=== PATIENT | female | born 1995 | race Caucasian/White ===

== ENCOUNTER 2019-01-14 13:45 | Observation (INO) ==
[2019-01-14 14:06] LABS: Basophils % 0.3 % (0.1-2.0); Eosinophils # 0.2 K/mm3 (0.0-0.4); Eosinophils % 1.5 % (0.1-12.0); Hematocrit 46.2 % (37.0-47.0); Hemoglobin 15.1 g/dL (12.2-16.2); Lymphocytes # 0.4 K/mm3 (0.7-4.5); Lymphocytes % 2.8 % (10-50); Mean Corpuscular HGB Conc 32.8 g/dL (31.8-35.4); Mean Corpuscular Hemoglobin 29.3 pg (27.0-31.2); Mean Corpuscular Volume 89.3 fl (81-99); Mean Platelet Volume 8.6 fl (7.4-10.4); Monocytes # 0.5 K/mm3 (0.1-1.0); Monocytes % 2.9 % (1.7-9.3); Neutrophils # 14.5 K/mm3 (1.8-7.8); Neutrophils % 92.5 % (37.0-80.0); Platelet Count 296 K/mm3 (142-424); Red Blood Count 5.17 M/mm3 (4.20-5.40); White Blood Count 15.7 K/mm3 (4.8-10.8)
--- NOTE | 2019-01-14 14:10 | Emergency Department Note ---
ED Disposition Clinical Impression: Gastroenteritis Disposition: Admitted as Observation Condition on Discharge: Good Instructions: DI for Acute Abdomen Referrals: Zak Wright MD [Primary Care Provider] - Time of Disposition: 17:30 - Critical Care Critical Care Time: No Attestation: On 01/14/19, the high probability of a clinically significant, sudden or life threatening deterioration of the following system(s) required my full and direct attention, intervention and personal management. The time I documented below is in addition to time spent performing reported procedures but includes the following listed in this critical care notation. Medical Decision Making - Medical Records Medical records reviewed: Yes: I reviewed the patient's medical records. - Ryan Inquiry Pt receiving controlled substance: Yes Ryan was queried for this patient: No Reason not queried -: Emergent pt cond-no time Risks and benefits of using a controlled substance: were discussed with pt by me Vital Signs: 01/14/19 13:51 01/14/19 14:16 01/14/19 14:30 Temperature 97.8 F Temperature Source Oral Pulse Rate [Left Radial] 129 H 119 H 124 H Respiratory Rate 18 15 Blood Pressure [Right Arm] 147/96 H 125/70 132/76 Blood Pressure Mean [Right Arm] 113 88 94 Blood Pressure Source [Right Arm] Automatic Cuff Automatic Cuff Blood Pressure Position [Right Arm] Sitting Sitting 02 Sat by Pulse Oximetry 98 96 100 Oxygen Delivery Method Room Air Room Air 01/14/19 15:00 01/14/19 15:30 01/14/19 15:46 Temperature Temperature Source Pulse Rate [Left Radial] 123 H 129 H 119 H Respiratory Rate 19 Blood Pressure [Right Arm] 147/78 H 132/72 132/72 Blood Pressure Mean [Right Arm] 101 92 92 Blood Pressure Source [Right Arm] Automatic Cuff Automatic Cuff Blood Pressure Position [Right Arm] Sitting Sitting 02 Sat by Pulse Oximetry 97 100 98 Oxygen Delivery Method Room Air 01/14/19 16:20 01/14/19 17:00 Temperature Temperature Source Pulse Rate [Left Radial] 115 H 125 H Respiratory Rate 17 Blood Pressure [Right Arm] 158/88 H 138/77 Blood Pressure Mean [Right Arm] 111 97 Blood Pressure Source [Right Arm] Automatic Cuff Automatic Cuff Blood Pressure Position [Right Arm] Sitting Sitting 02 Sat by Pulse Oximetry 96 99 Oxygen Delivery Method Room Air - Lab Data Lab results reviewed: Yes: I reviewed the patient's lab results. Lab Results 01/14/19 14:00: WBC 15.7 H, RBC 5.17, Hgb 15.1, Hct 46.2, MCV 89.3, MCH 29.3, MCHC 32.8, RDW 13.0, Plt Count 296, MPV 8.6, Neut % (Auto) 92.5 H, Lymph % (Auto) 2.8 L, Wake % (Auto) 2.9, Eos % (Auto) 1.5, Baso % (Auto) 0.3, Neut # (Auto) 14.5 H, Lymph # (Auto) 0.4 L, Wake # (Auto) 0.5, Eos # (Auto) 0.2, Baso # (Auto) 0.0, Total Counted 100, Neutrophils % (Manual) 86 H, Band Neutrophils % 8.0, Lymphocytes % (Manual) 3 L, Monocytes % (Manual) 3, Platelet Estimate Normal, RBC Morphology Normal 01/14/19 14:00: Sodium 137, Potassium 4.6, Chloride 100, Carbon Dioxide 26, Anion Gap 15.6 H, BUN 15, Creatinine 0.74, Estimated Creat Clear 162, Estimated GFR 96, Est GFR ( Amer) 117, Glucose 293 H, Calcium 9.2, Total Bilirubin 1.1 H, AST 13 L, ALT 24, Alkaline Phosphatase 153 H, Total Protein 8.2, Albumin 4.2, Globulin 4.0 H, Albumin/Globulin Ratio 1.1 01/14/19 14:00: Sodium Cancelled, Potassium Cancelled, Chloride Cancelled, Carbon Dioxide Cancelled, Anion Gap Cancelled, BUN Cancelled, Creatinine Cancelled, Estimated Creat Clear Cancelled, Estimated GFR Cancelled, Est GFR ( Amer) Cancelled, Glucose Cancelled, Calcium Cancelled, Total Bilirubin Cancelled, AST Cancelled, ALT Cancelled, Alkaline Phosphatase Cancelled, Total Protein Cancelled, Albumin Cancelled, Globulin Cancelled, Albumin/Globulin Ratio Cancelled, Lipase 64 L, Acetone Level None detected 01/14/19 14:00: Lactate 1.6 01/14/19 14:00: Serum HCG, Qual Negative 01/14/19 15:11: POC Glucose 203 H Result diagrams: 01/14/19 14:00 01/14/19 14:00 Orders (Tests/Meds): ED MEDICATIONS Generic Name Dose Route Start Last Admin Trade Name Artie PRN Reason Stop Dose Admin Ceftriaxone Sodium 1 gm/ 50 mls @ 100 mls/hr 01/14/19 17:30 Sodium Chloride IV 01/28/19 17:29 Q24H CHRIS Protocol Metronidazole 250 mg in 50 mls @ 100 mls/hr 01/14/19 17:30 Flagyl 250mg/50ml Ivpb IV 01/28/19 17:29 Q8H CHRIS Protocol Discontinued Medications Generic Name Dose Route Start Last Admin Trade Name Artie PRN Reason Stop Dose Admin Sodium Chloride 1,000 mls @ 999 mls/hr 01/14/19 14:00 01/14/19 14:01 Sod Chlor 0.9% 1000ml Bag IV 01/14/19 15:00 999 mls/hr .Q1H1M CHRIS Administration Sodium Chloride 500 mls @ 999 mls/hr 01/14/19 14:15 01/14/19 14:10 Sod Chlor 0.9% 1000ml Bag IV 01/14/19 14:45 Not Given .Q31M CHRIS Ioversol 75 ml 01/14/19 17:08 01/14/19 17:09 Rad-Optiray 350 100ml Vial IV 01/14/19 17:09 75 ml ONCE ONE Administration Protocol Ketorolac Tromethamine 30 mg 01/14/19 14:00 01/14/19 14:01 Toradol 30mg/Ml Vial IV 01/14/19 14:01 30 mg ONCE ONE Administration Ketorolac Tromethamine 30 mg 01/14/19 14:07 01/14/19 14:13 Toradol 30mg/Ml Vial IV 01/14/19 14:08 Not Given ONCE ONE Morphine Sulfate 2 mg 01/14/19 15:49 01/14/19 15:54 Morphine 2mg/Ml Syringe IV 01/14/19 15:50 2 mg ONCE ONE Administration Ondansetron HCl 4 mg 01/14/19 13:56 01/14/19 14:01 Zofran 4mg/2ml Vial IV 01/14/19 13:57 4 mg ONCE ONE Administration Ondansetron HCl 4 mg 01/14/19 14:07 01/14/19 14:10 Zofran 4mg/2ml Vial IV 01/14/19 14:08 Not Given ONCE ONE Ondansetron HCl 4 mg 01/14/19 15:28 01/14/19 15:29 Zofran 4mg/2ml Vial IV 01/14/19 15:29 4 mg ONCE ONE Administration Promethazine HCl 12.5 mg 01/14/19 15:48 01/14/19 15:54 Phenergan 25mg/Ml 1ml Vial IV 01/14/19 15:49 12.5 mg ONCE ONE Administration Promethazine HCl 12.5 mg 01/14/19 17:08 01/14/19 17:15 Phenergan 25mg/Ml 1ml Vial IV 01/14/19 17:09 12.5 mg ONCE ONE Administration Sodium Chloride 25 ml 01/14/19 15:48 01/14/19 15:54 Sod Chlor 0.9% 25ml Bag IV 01/14/19 15:49 25 ml ONCE ONE Administration Sodium Chloride 10 ml 01/14/19 17:08 01/14/19 17:09 Rad-Saline Flush 10ml Syringe IV 01/14/19 17:09 10 ml ONCE ONE Administration Sodium Chloride 25 ml 01/14/19 17:08 01/14/19 17:15 Sod Chlor 0.9% 25ml Bag IV 01/14/19 17:09 25 ml ONCE ONE Administration ORDERS Category Date Time Status Drug Screen,Urine Stat Lab 01/14/19 14:04 Ordered UA [Urinalysis and Microscopic] Stat Lab 01/14/19 13:55 Ordered Urine , HCG Qual. Stat Lab 01/14/19 13:56 Ordered Blood Culture Stat Micro 01/14/19 14:00 Received Blood Culture Stat Micro 01/14/19 17:28 Ordered - CT Data CT Scan: Abdomen, Pelvis Time Received: 17:[address] Reviewed: Yes: I have viewed the radiologist's interpretation Medical Decision Narrative: admit d/w Dr Buckner General Adult HPI - General Chief complaint: Abdominal Pain Stated complaint: vomiting Time Seen by Provider: 01/14/19 14:07 Mode of Arrival: Ambulatory Source of Information: Patient Limitations: No Limitations Description of Symptoms (Recalled from ER Triage Doc. by RN): Pt states she started last night with n/v/d and it has continued into today with lower abdomen and back pain. She is vomiting yellow bile looking stuff up - History of Present Illness HPI narrative: mild to mod off and on NVD today, w/ lower abdominal cramps, no fever, no injury, rad to back, no rash, hx dka, states she is unable to eat - Related Data Home Medications Medication Instructions Recorded Confirmed Insulin Detemir [Levemir 24 unit SQ HS 01/14/19 01/14/19 100units/mL 3mL flexpen] Insulin Lispro [HumaLOG 100 100 units SQ DIRECTED 01/14/19 01/14/19 units/mL 3mL vial (SSI)] Allergies Allergy/AdvReac Type Severity Reaction Status Date / Time No Known Allergies Allergy Unverified 09/28/17 14:56 [facility] History - Hepatitis A Screen Drug use history?: No High risk sexual behaviors?: No History of sexually transmitted infection?: No Currently employed?: No Childcare worker?: No Do you have indoor plumbing?: Yes Do you have electricity?: Yes Attestation statement:: This patient has been screened for Hepatitis A risk factors. Medical History: Reports:: Diabetes Mellitus Type 1 Denies:: Diabetes Mellitus Type 2 - Social History Alcohol Intake: current Alcohol Intake Frequency:: holidays/special occasions only Occupational Status: other - Psychiatric History Expresses thoughts of harming self/others: None Suicide Plan Description: No Plan ROS Obtained: Yes Systems reviewed as appropriate & no additional complaints - Constitutional Constitutional: Reports fatigue, Denies fever(s) - Eyes Eyes: Denies change in vision - ENT Ears, Nose, Mouth, and Throat: Denies nasal discharge, Denies nose pain - Cardiovascular Cardiovascular: Denies acrocyanosis, Denies chest pain - Respiratory Respiratory: No dyspnea - Gastrointestinal Gastrointestingal: Reports: abdominal pain, vomiting - Musculoskeletal Musculoskeletal: Denies neck pain - Integumentary/Breasts Skin/Breast: Denies rash - Neurologic Neurologic: Denies dizziness Physical Exam - General General appearance: alert, in no apparent distress - Head Head exam: atraumatic - Eye Eye exam: Present: normal appearance, PERRL, EOMI - ENT ENT exam: Present: normal exam, normal oropharynx, mucous membranes moist - Neck Neck exam: Present: normal inspection - Chest Chest inspection: Present: normal inspection - Respiratory Respiratory exam: Present: normal lung sounds bilaterally - Cardiovascular Cardiovascular exam: Present: regular rate, normal rhythm - Abdominal Exam Abdominal exam: Present: soft, tenderness. Absent: rebound - Extremities Exam Extremities exam: Present: normal inspection, full ROM - Back Exam Back exam: Present: normal inspection - Neurological Exam Neurological exam: Present: alert, oriented X3 - Psychiatric Psychiatric exam: Present: normal affect, normal mood - Skin Skin exam: Present: warm, dry
[2019-01-14 14:15] LABS: Acetone, Serum (Rapid) None Detected (None Detect)
[2019-01-14 14:19] LABS: Albumin Level 4.2 gm/dL (3.4-5.0); Albumin/Globulin Ratio 1.1 (1.1-1.8); Anion Gap 15.6 mEq/L (5-15); Bilirubin,Total 1.1 mg/dL (0.2-1.0); Calcium 9.2 mg/dL (8.5-10.1); Potassium 4.6 mmoL/L (3.5-5.1); Total Protein,Serum 8.2 gm/dL (6.4-8.2)
[2019-01-14 14:20] LABS: Lipase 64 u/L (73-393)
[2019-01-14 14:25] LABS: Lymphocytes % 3 % (10-50); Monocytes % 3 % (2-9); Neutrophils % 86 % (42-76); RBC Morphology Normal; Total Cells Counted 100
[2019-01-14 19:35] LABS: Microscopic, Urine URINE MICROSCOPIC (MICROSCOPIC)
[2019-01-14 19:44] LABS: Amphetamine/Metha Screen,Urine Negative ng/mL (<1000); Barbiturates Screen,Urine Negative ng/mL (<200); Benzodiazepines Screen,Urine Negative ng/mL (<200); Cannabinoid Screen,Urine Negative ng/mL (<50); Cocaine Screen,Urine Negative ng/mL (<300); Methadone Screen,Urine Negative ng/mL (<300); Opiate Screen,Urine Positive ng/mL (<300); Phencyclidine Screen,Urine Negative ng/mL (<25)
[2019-01-14 19:45] LABS: Appearance,Urine CLEAR (Clear); Bilirubin,Urine Negative (Negative); Blood, Urine Negative (Negative); Color,Urine YELLOW (Yellow); Glucose,Urine (UA) 3+ (Negative); Ketones,Urine 1+ (Negative); Leukocyte Esterase,Urine Negative (Negative); PH,Urine 5.5 (5.0-8.5); Protein,Urine Negative (Negative); Urobilinogen,Urine 0.2 EU/dl (0.2)
[2019-01-14 19:46] LABS: Amorphous Sediment,Urine Trace /lpf
--- NOTE | 2019-01-15 09:01 | Pharmacy Consult Notes ---
[facility] Pharmacy VTE Monitoring - Patient Demographics Admission date: 01/14/19 Report Date: 01/15/19 Time: 09:00 Allergies/Adverse Reactions: Patient Allergies No Known Allergies Allergy (Unverified 09/28/17 14:56) Height: 1.68 m Weight: 90.52 kg Patient Problems: Current Active Problems Gastroenteritis (Acute) - VTE Risk Labs: VTE Related Lab Results Hgb 15.1 g/dL (12.2-16.2) 01/14/19 14:00 Hct 46.2 % (37.0-47.0) 01/14/19 14:00 Plt Count 296 K/mm3 (142-424) 01/14/19 14:00 BUN 15 mg/dL (7-18) 01/14/19 14:00 Creatinine 0.74 mg/dL (0.55-1.02) 01/14/19 14:00 Estimated Creat Clear 162 mL/min (50-200) 01/14/19 14:00 VTE Score: 1 VTE Risk Level: Very Low Risk - Prophylaxis VTE Prophylaxis Ordered?: Yes Types of VTE Prophylaxis: TEDS Knee High Location of Applied Device: Bilateral Lower Extremeties
--- NOTE | 2019-01-15 15:17 | History & Physical Report ---
*Admission Date: 01/14/19 *Chief complaint: Nausea vomiting diarrhea *History of present illness: This 23-year-old white female diabetic was admitted yesterday afternoon with nausea, vomiting, diarrhea. Her symptoms had started the night before. There is some suspicion about food poisoning since her mother and another family member also developed the symptoms. They were worried about the possibility of getting this from a salad or a certain dressing on salad. She has done well overnight. She is still having loose stools but the vomiting has subsided. She requests that she be able to dose her insulin per her usual home routine. She usually takes 54 units of Levemir in the evening and then doses after meals according to her blood sugar. She is type I diabetic since childhood. She is 1 para 1. [facility] History Medical History: Reports:: Diabetes Mellitus Type 1 Denies:: Cancer, Diabetes Mellitus Type 2, MRSA *Have you ever received a pneumonia vaccine?: No *Have you received a flu vaccine this season?: Yes Other Surgeries: Yes: Cholecystectomy, Amputation: No Fractures: No - *Social History Educational Level: Attended College Smoking Status: Never smoker Alcohol Intake: never Alcohol Intake Frequency:: holidays/special occasions only *Occupational Status:: other *Travel in the last 8 weeks: None - Psychiatric History Expresses thoughts of harming self/others: None Suicide Plan Description: No Plan Family Hx:: Cancer, Diabetes, Heart Attack, Hyperlipidemia Review of Systems - Constitutional Denies fever(s) - Eyes Denies change in vision - ENT Denies sore throat - *Cardiovascular Denies chest pain - *Respiratory Denies chest congestion, Denies cough - *Gastrointestinal Comments: She has not had much abdominal pain. She is only had some cramping with nausea and diarrhea. - *Genitourinary Denies abnormal vaginal bleeding - *Musculoskeletal Denies joint pain - Integumentary/Breasts Comments: No rash skin is normal - *Neurologic Denies dizziness - Psychiatric Comments: Normal - Allergic/Immunologic Denies GI upset with certain foods Meds Home Medications Medication Instructions Recorded Confirmed Type Insulin Detemir [Levemir 54 unit SQ HS 01/14/19 01/15/19 History 100units/mL 3mL flexpen] RX: Insulin Lispro [HumaLOG 100 0 units SQ DIRECTED 01/14/19 01/15/19 History units/mL 3mL vial (SSI)] Allergies Allergy/AdvReac Type Severity Reaction Status Date / Time No Known Allergies Allergy Unverified 09/28/17 14:56 Exam Vital signs and Labs for Last 24 Hours: Temp Pulse Resp BP Pulse Ox 98.4 F 113 H 15 117/67 99 01/15/19 07:26 01/15/19 07:26 01/15/19 07:26 01/15/19 07:26 01/15/19 08:00 Laboratory Results - last 24 hr 01/14/19 15:11: POC Glucose 203 H 01/14/19 18:55: POC Glucose 186 H 01/14/19 19:25: Urine Color Yellow, Urine Appearance Clear, Urine pH 5.5, Ur Specific Hall 1.020, Urine Protein Negative, Urine Glucose (UA) 3+, Urine Ketones 1+, Urine Blood Negative, Urine Nitrate Negative, Urine Bilirubin Negative, Urine Urobilinogen 0.2, Ur Leukocyte Esterase Negative, Ur Squamous Epith Cells 3-5, Amorphous Sediment Trace 01/14/19 19:25: Urine Opiates Screen Positive H, Urine Methadone Screen Negative, Ur Barbituates Screen Negative, Ur Phencyclidine Scrn Negative, Ur Amphetamines Screen Negative, U Benzodiazepines Scrn Negative, Urine Cocaine Screen Negative, U Marijuana (THC) Screen Negative 01/14/19 20:56: POC Glucose 245 H 01/14/19 21:40: Stl Aeromonas (PCR) Not detected, Stl C. cayetanensis PCR Not detected, Stool Rotavirus (PCR) Not detected, Stl Adenov F 40/41 PCR Not detected, Stool Astrovirus (PCR) Not detected, Stool Campylobacter PCR Not detected, Stl C.difficile Tox PCR Not detected, Stool Cryptosporidium PCR Not detected, Stl E.coli Shiga Tox PCR Not detected, Stool E coli O157 PCR Not detected, Stl Enterotoxigenic E PCR Not detected, Stool EPEC (PCR) Detected A, Stool EAEC (PCR) Not detected, Stl E. histolytica PCR Not detected, Stool Giardia Lamblia PCR Not detected, Stool Salmonella PCR Not detected, Stool Sapovirus (PCR) Not detected, Stl P. shigelloides PCR Not detected, Stl Shigella/EIEC PCR Not detected, St Y.enterocolitica PCR Not detected, Stool Vibrio (PCR) Not detected, Stl Vibrio cholerae PCR Not detected, Stl Norovirus GI/GII PCR Detected A 01/15/19 00:08: POC Glucose 271 H 01/15/19 03:50: POC Glucose 211 H 01/15/19 06:21: POC Glucose 172 H I & O for Last 24 hours: Intake & Output 01/13/19 01/14/19 01/15/19 01/16/19 11:59 11:59 11:59 11:59 Intake Total 50 / 50 150 / 150 Output Total 450 / 450 Balance -400 / -400 150 / 150 Weight 199 lb 9 oz - Constitutional no acute distress - *Routine HEENT Exam Head: Present: normocephalic Eye: Present: PERRL ENT: Present: mucous membranes moist (At this time) - *Routine Respiratory Exam Present: CTA bilaterally - *Routine Cardiovascular Exam Present: RRR - *Routine Abdominal Exam Present: soft, normoactive bowel sounds. Absent: tenderness - *Routine Rectal Exam Comments: Not done - *Routine Extremities Exam Absent: edema - *Routine Neurological Exam Present: alert, oriented X3 H&P: Result - Imaging and Cardiology CT scan - abdomen Status: image reviewed by me (Only suggests enteritis) Assessment and Plan (1) Insulin dependent diabetes mellitus Current visit: Yes Status: Acute Category: Medical Code(s): E11.9 - Type 2 diabetes mellitus without complications; Z79.4 - shelter (current) use of insulin (2) [place] virus enteritis Current visit: Yes Status: Acute Category: Medical Code(s): A08.11 - Acute gastroenteropathy due to [place] agent (3) E coli enteritis Current visit: Yes Status: Acute Category: Medical Code(s): A04.4 - Other intestinal Escherichia coli infections - Assessment and plan all Dx Assessment and Plan for all problems:: Patient has received IV antibiotics and Flagyl. Her symptoms are improving. Blood tests will be rechecked. Advance to full liquid diet. She asks that she be able to administer her insulin as per her home routine.
[2019-01-15 15:36] LABS: Basophils % 0.5 % (0.1-2.0); Eosinophils % 0.7 % (0.1-12.0); Hematocrit 38.5 % (37.0-47.0); Hemoglobin 12.6 g/dL (12.2-16.2); Lymphocytes # 0.9 K/mm3 (0.7-4.5); Lymphocytes % 19.9 % (10-50); Mean Corpuscular HGB Conc 32.8 g/dL (31.8-35.4); Mean Corpuscular Hemoglobin 29.2 pg (27.0-31.2); Mean Platelet Volume 8.9 fl (7.4-10.4); Monocytes # 0.3 K/mm3 (0.1-1.0); Monocytes % 6.5 % (1.7-9.3); Neutrophils # 3.2 K/mm3 (1.8-7.8); Neutrophils % 72.4 % (37.0-80.0); Platelet Count 243 K/mm3 (142-424); Red Blood Count 4.32 M/mm3 (4.20-5.40); Red Cell Distribution Width 13.3 % (11.5-17.5); White Blood Count 4.4 K/mm3 (4.8-10.8)
[2019-01-15 15:41] LABS: Albumin Level 3.1 gm/dL (3.4-5.0); Albumin/Globulin Ratio 0.9 (1.1-1.8); Anion Gap 13.6 mEq/L (5-15); Bilirubin,Total 0.6 mg/dL (0.2-1.0); Globulin 3.6 gm/dl (1.3-3.2); Potassium 3.6 mmoL/L (3.5-5.1); Total Protein,Serum 6.7 gm/dL (6.4-8.2)
[2019-01-15 15:50] LABS: Calcium 8.2 mg/dL (8.5-10.1)
[2019-01-16 05:47] LABS: Basophils % 0.5 % (0.1-2.0); Eosinophils # 0.1 K/mm3 (0.0-0.4); Eosinophils % 2.2 % (0.1-12.0); Hemoglobin 12.2 g/dL (12.2-16.2); Lymphocytes # 1.4 K/mm3 (0.7-4.5); Lymphocytes % 28.7 % (10-50); Mean Corpuscular HGB Conc 33.8 g/dL (31.8-35.4); Mean Corpuscular Hemoglobin 29.8 pg (27.0-31.2); Mean Corpuscular Volume 87.9 fl (81-99); Mean Platelet Volume 8.9 fl (7.4-10.4); Monocytes # 0.3 K/mm3 (0.1-1.0); Monocytes % 6.9 % (1.7-9.3); Neutrophils % 61.8 % (37.0-80.0); Platelet Count 222 K/mm3 (142-424); Red Blood Count 4.09 M/mm3 (4.20-5.40); Red Cell Distribution Width 13.4 % (11.5-17.5); White Blood Count 4.8 K/mm3 (4.8-10.8)
[2019-01-16 05:57] LABS: Anion Gap 13.3 mEq/L (5-15); Calcium 8.3 mg/dL (8.5-10.1); Potassium 3.3 mmoL/L (3.5-5.1)
--- NOTE | 2019-01-16 08:11 | Progress Note ---
Internal Medicine - PN: Subj *Date: 01/16/19 *Time: 08:08 Interval history: Feels she is better today. She did sleep some during the night. She has some abdominal soreness. She has had no further nausea or vomiting. She does continue to have watery diarrhea. Last stool was around 2 AM. She has been eating a full liquid diet. Denies chest pain and shortness of breath. She is voiding QS. Exam Vital signs and Labs for Last 24 Hours: Temp Pulse Resp BP Pulse Ox 98.6 F 90 16 102/59 L 97 01/16/19 07:23 01/16/19 07:23 01/16/19 07:23 01/16/19 07:23 01/16/19 07:23 Laboratory Results - last 24 hr 01/15/19 11:32: POC Glucose 205 H 01/15/19 14:30: POC Glucose 64 L 01/15/19 15:15: WBC 4.4 L D, RBC 4.32, Hgb 12.6, Hct 38.5, MCV 89.0, MCH 29.2, MCHC 32.8, RDW 13.3, Plt Count 243, MPV 8.9, Neut % (Auto) 72.4, Lymph % (Auto) 19.9, Jackson % (Auto) 6.5, Eos % (Auto) 0.7, Baso % (Auto) 0.5, Neut # (Auto) 3.2, Lymph # (Auto) 0.9, Jackson # (Auto) 0.3, Eos # (Auto) 0.0, Baso # (Auto) 0.0 01/15/19 15:15: Sodium 145, Potassium 3.6 D, Chloride 108 H, Carbon Dioxide 27, Anion Gap 13.6, BUN 11 D, Creatinine 0.64, Estimated Creat Clear 194, Estimated GFR 114, Est GFR ( Amer) 138, Glucose 90, Calcium 8.2 L D, Total Bilirubin 0.6, AST 13 L, ALT 17 D, Alkaline Phosphatase 107, Total Protein 6.7, Albumin 3.1 L D, Globulin 3.6 H, Albumin/Globulin Ratio 0.9 L 01/15/19 17:08: POC Glucose 93 01/15/19 20:28: POC Glucose 155 H 01/16/19 05:39: WBC 4.8, RBC 4.09 L, Hgb 12.2, Hct 36.0 L, MCV 87.9, MCH 29.8, MCHC 33.8, RDW 13.4, Plt Count 222, MPV 8.9, Neut % (Auto) 61.8, Lymph % (Auto) 28.7, Jackson % (Auto) 6.9, Eos % (Auto) 2.2, Baso % (Auto) 0.5, Neut # (Auto) 3.0, Lymph # (Auto) 1.4, Jackson # (Auto) 0.3, Eos # (Auto) 0.1, Baso # (Auto) 0.0 01/16/19 05:39: Sodium 145, Potassium 3.3 L, Chloride 110 H, Carbon Dioxide 25, Anion Gap 13.3, BUN 9, Creatinine 0.55, Estimated Creat Clear 225, Estimated GFR 136, Est GFR ( Amer) 164, Glucose 64 L D, Calcium 8.3 L 01/16/19 06:29: POC Glucose 57 L I & O for Last 24 hours: Intake & Output 01/13/19 01/14/19 01/15/19 01/16/19 11:59 11:59 11:59 11:59 Intake Total 100 / 100 1520 / 1520 Output Total 450 / 450 Balance -350 / -350 1520 / 1520 Weight 199 lb 9 oz - Constitutional no acute distress Comments: Appears comfortable - *Routine Respiratory Exam Present: CTA bilaterally (Anteriorly and posteriorly) - *Routine Cardiovascular Exam Present: RRR - *Routine Abdominal Exam Present: soft, normoactive bowel sounds Comments: Abdomen is sore and lower quadrants - *Routine Extremities Exam Absent: edema, calf tenderness - *Routine Neurological Exam Present: alert, oriented X3 Assessment and Plan (1) Insulin dependent diabetes mellitus Current visit: Yes Status: Acute Category: Medical Code(s): E11.9 - Type 2 diabetes mellitus without complications; Z79.4 - senior living (current) use of insulin (2) [place] virus enteritis Current visit: Yes Status: Acute Category: Medical Code(s): A08.11 - Acute gastroenteropathy due to [place] agent (3) E coli enteritis Current visit: Yes Status: Acute Category: Medical Code(s): A04.4 - Other intestinal Escherichia coli infections (4) Hypokalemia Current visit: Yes Status: Acute Category: Medical Code(s): E87.6 - Hypokalemia - Assessment and plan all Dx Assessment and Plan for all problems:: Continue with IV antibiotics. Will give p.o. potassium for potassium of 3.3. Good oral intake. Will saline lock IV
[2019-01-16 13:36] LABS: Anion Gap 11.8 mEq/L (5-15); Calcium 8.3 mg/dL (8.5-10.1); Potassium 3.8 mmoL/L (3.5-5.1)
--- NOTE | 2019-01-17 13:45 | Discharge Summary ---
General - General Admission date:: 01/14/19 Discharge date: 01/16/19 HPI HPI: This 23-year-old white female diabetic was admitted yesterday afternoon with nausea, vomiting, diarrhea. Her symptoms had started the night before. There is some suspicion about food poisoning since her mother and another family member also developed the symptoms. They were worried about the possibility of getting this from a salad or a certain dressing on salad. She has done well overnight. She is still having loose stools but the vomiting has subsided. She requests that she be able to dose her insulin per her usual home routine. She usually takes 54 units of Levemir in the evening and then doses after meals according to her blood sugar. She is type I diabetic since childhood. She is 1 para 1. Hospital Course Hospital Course: The patient was admitted and started on IV fluids as well as IV antibiotics. Her CT revealed only enteritis. She was started on a full liquid diet and tolerated this well. The patient had no further nausea or vomiting. She continued to have watery diarrhea. She felt she was better and could go home. Her potassium was low, therefore it was replaced and normalized. Her white blood cell count normalized as well. Her stool was positive for both EPEC and norovirus. She was stable to be discharged home on oral potassium replacement as well as Omnicef and will follow up with Dr. mcadams in the office. Objective Vital signs: Temp Pulse Resp BP Pulse Ox 98.4 F 87 14 109/88 L 100 01/16/19 16:00 01/16/19 16:00 01/16/19 16:00 01/16/19 16:00 01/16/19 16:00 Narrative: - Constitutional no acute distress - *Routine HEENT Exam Head: Present: normocephalic Eye: Present: PERRL ENT: Present: mucous membranes moist (At this time) - *Routine Respiratory Exam Present: CTA bilaterally - *Routine Cardiovascular Exam Present: RRR - *Routine Abdominal Exam Present: soft, normoactive bowel sounds. Absent: tenderness - *Routine Rectal Exam Comments: Not done - *Routine Extremities Exam Absent: edema - *Routine Neurological Exam Present: alert, oriented X3 Results Labs on day of discharge: Labs from last 24 hours 01/16/19 13:20 Sodium 142 Potassium 3.8 Chloride 108 H Carbon Dioxide 26 Anion Gap 11.8 BUN 7 Creatinine 0.58 Estimated Creat Clear 214 Estimated GFR 128 Est GFR ( Amer) 155 Glucose 166 H D Calcium 8.3 L Preliminary micro results at discharge 01/14/19 14:00 Blood Culture - Preliminary Blood NO GROWTH AFTER 48 HOURS 01/14/19 14:00 Blood Culture - Preliminary Blood NO GROWTH AFTER 48 HOURS DS: Diagnosis - Discharge Diagnosis (1) Insulin dependent diabetes mellitus Status: Acute (2) E coli enteritis Status: Acute (3) Hypokalemia Status: Acute (4) Enteritis due to Norovirus Status: Acute Discharge Plan - Patient Discharge Instructions ACTIVITY: Limited activity DIET: diabetic diet - Follow up Plan Follow up with: Zak Mcadams MD [Primary Care Provider] - 01/23/19 Disposition: Home, [facility] Medications: Home Medications Medication Instructions Recorded Confirmed Type Insulin Detemir [Levemir 54 unit SQ HS 01/14/19 01/15/19 History 100units/mL 3mL flexpen] Insulin Lispro [HumaLOG 100 0 units SQ DIRECTED 01/14/19 01/15/19 History units/mL 3mL vial (SSI)] Cefdinir [Omnicef 300mg Capsule] 600 mg PO DAILY #10 cap 01/16/19 Rx Potassium Chloride [Klor-con 20 20 meq PO QODHS #20 tablet 01/16/19 Rx mEq tablet] Prescriptions/Medication Reconciliation: New Cefdinir [Omnicef 300mg Capsule] 600 mg PO DAILY #10 cap Potassium Chloride [Klor-con 20 mEq tablet] 20 meq PO QODHS #20 tablet Continue Insulin Lispro [HumaLOG 100 units/mL 3mL vial (SSI)] 0 units SQ DIRECTED Insulin Detemir [Levemir 100units/mL 3mL flexpen] 54 unit SQ HS
== END 2019-01-16 16:39 | disposition home or self-care (01) ==
LOC: 2ND 13:45 → ER 13:45 → 2ND 17:53
PROVIDERS: ADMIT Family Medicine; ATTEND Family Medicine
CPT/HCPCS: 36415; 74177; 80048; 80053; 80305; 81001; 82009; 82962; 83605; 83690; 84703; 85007; 85025; 87040; 87506; 96365; 96367; 96375; 96376; 99285; G0378; J2405; Q9967; S0030

== ENCOUNTER 2020-02-10 13:17 | Emergency (ER) | payer BC, SELFPAY ==
[2020-02-10 13:18] VITALS: BP 137/87; PULSE 102; RESP 20; TEMP 37.7; O2SAT 98; BMI 36.7
[2020-02-10 13:52] LABS: UTC Influenza A Antigen Negative (Negative); UTC Influenza B Antigen Negative (Negative); UTC Strep Screen (Rapid) Negative (Negative)
--- NOTE | 2020-02-10 14:24 | HMH.EDUTC ---
[facility] [place] Disposition Clinical Impression: URI (upper respiratory infection) Qualifiers: URI type: unspecified URI Qualified Code(s): J06.9 - Acute upper respiratory infection, unspecified Disposition: Home, Self-Care Condition on Discharge: Good Instructions: Sore Throat, Azithromycin, Preventing the Spread of Coronavirus Discharge Instructions Additional Instructions: *Monitor Temp, Over the counter Motrin or Tylenol as directed/as needed Tylenol every 4 hours and Motrin every 6 hours (as long as your family doctor has told you that you can take it) for fever or pain. and straight to ER if unable to lower temp less than 101.0 after medication given *Warm salt water gargles may help to soothe the throat *Throat Lozenges *Warm fluids *Sleep elevated *Humidifier/Vaporizer You was given card for COVID19 instructions, make sure to follow them, home quarantine, and stay away from family family and the public until results back and negative Your throat swab was sent for culture. Those results are typically sent to your primary care. Be sure to follow up in 2-3 days with your family doctor/primary care physician if no improvement so they can review those result and treat if necessary. If you don?t have a primary care doctor, I recommend you get one but in the mean time, you will have to return to a walk in clinic Follow up IMMEDIATELY for new or worsening symptoms or no Noticeable improvement over the next 48-72 hours. 911 for difficulty breathing or swallowing Prescriptions: Azithromycin [Z-Regulo 250mg Tab] 250 mg PO DIRECTED #6 tab Transmission Status: Received by [facility] #[id number] Referrals: Zak Wright MD [Primary Care Provider] - As needed Forms: Work/School Release Medical Decision Making - Ryan Inquiry Pt receiving controlled substance: No Ryan was queried for this patient: No Vital Signs: 02/10/20 13:18 Temperature 99.9 F H Temperature Source Oral Pulse Rate [Radial] 102 H Respiratory Rate 20 Blood Pressure [Right Arm] 137/87 Blood Pressure Mean [Right Arm] 103 Blood Pressure Source [Right Arm] Automatic Cuff Blood Pressure Position [Right Arm] Sitting 02 Sat by Pulse Oximetry 98 Oxygen Delivery Method Room Air - Lab Data Lab results reviewed: Yes: I reviewed the patient's lab results. Lab Results 02/10/20 13:41: Influenza Type A Ag Negative, Influenza Type B Ag Negative 02/10/20 13:41: Strep Scn Rapid Clinic Negative 02/10/20 14:17: Monoscreen Negative Orders (Tests/Meds): ORDERS Category Date Time Status SARS-CoV-2, LYNETTE Stat Lab 02/10/20 15:07 Ordered Strep Screen Confirmation Stat Micro 02/10/20 13:41 Received - Reevaluation(s) Time: 15:26 Reevaluation #1: Awaiting lab to obtain swabs for COVID19 testing [facility] [place] HPI - General Stated complaint: sore throat,fever Time Seen by Provider: 02/10/20 14:00 Mode of Arrival: Ambulatory Source of Information: Patient Limitations: No Limitations Description of Symptoms (Recalled from Triage Doc. by RN): sore throat that started yesterday, feels swollen, body, aches, and fever HEENT Symptoms (Recalled from RN notes): Yes Resp Symptoms (Recalled from RN notes): No Skin Symptoms (Recalled from RN notes): No MS Symptoms (Recalled from RN notes): No Functional Status (Recalled from RN notes): wnl - History of Present Illness Provider Complaint: Patient states that yesterday she had a canker sore on her tongue and it busted State that last night she started having sore throat and fever. States that her fever went up to 102.0 last night States that she woke up today and her throat was worse States that it feels like the worse sore throat she has had States that it hit her suddenly yesterday - Related Data Home Medications Medication Instructions Recorded Confirmed Insulin Detemir [Levemir 54 unit SQ HS 01/14/19 01/15/19 100units/mL 3mL flexpen] Insulin Lispro [HumaLOG 100 0 units SQ DIRECTED 01/14/1901/15
[2020-02-10 15:00] LABS: Monoscreen (Rapid) Negative (Negative)
[2020-02-10 15:57] VITALS: BP 137/87; PULSE 102; RESP 20; TEMP 37.7; O2SAT 98
--- NOTE | 2020-02-12 17:18 | PC.NURSE ---
Notified patient and provider of negative test results.
[2020-02-12 17:21] LABS: Covid-19 Nasal PCR Sendout Lex Not Detected
== END 2020-02-10 15:59 | disposition home or self-care (01) ==
PROVIDERS: Emergency Provider Nurse Practitioner; PCP Family Medicine
DX: J06.9 Acute upper respiratory infection, unspecified (principal); E10.9 Type 1 diabetes mellitus without complications; Z79.4 Long term (current) use of insulin
CPT/HCPCS: 86318; 87804; 87880; 99202; U0003

== ENCOUNTER 2021-01-20 09:13 | Emergency (ER) | payer OTHER, SELFPAY ==
[2021-01-20 09:15] VITALS: PULSE 132; RESP 22; TEMP 37.1; O2SAT 97; BMI 35.8
--- NOTE | 2021-01-20 09:35 | XR_ITS ---
PROCEDURE: XR CHEST 2V CLINICAL HISTORY: cough COMPARISON: CT CTAC CTA-CHEST from 12/04/2016 CR CXR CHEST(2 VIEWS-NOT PORTABLE) from 02/10/2017 FINDINGS: The cardiomediastinal silhouette and pulmonary vascularity are within normal limits. The lungs are clear without infiltrates, suspicious nodules, or pleural effusions. Mild thoracic scoliosis convex right and lumbar scoliosis convex left. Prior cholecystectomy IMPRESSION: No acute findings. Dictated by: Boaz Tim MD 01/20/2021 10:03 Boaz Tim MD in [place] 01/20/2021 10:03
--- NOTE | 2021-01-20 09:36 | HMH.EDUTC ---
[facility] [place] Disposition Clinical Impression: Sinusitis Qualifiers: Sinusitis location: unspecified location Chronicity: unspecified Qualified Code(s): J32.9 - Chronic sinusitis, unspecified Disposition: Home, Self-Care Condition on Discharge: Good Instructions: Acute Bronchitis, DI for Sinusitis, DI for Cough -- Adult Prescriptions: Amoxicillin/Potassium Clav [Augmentin 875-125 Tablet] 1 tab PO Q12H 7 Days #14 tab Transmission Status: Received by [facility] #[id number] Fluticasone Propionate [Flonase 50mcg nasal spray 16gm] 1 spr NS DAILY #1 bottle Transmission Status: Received by [facility]/pharmacy #[id number] guaiFENesin [Mucinex 600mg tablet] 1 - 2 tab PO Q12H #20 tab.er.12h Transmission Status: Received by [facility]/pharmacy #[id number] Referrals: Zak Wright MD [Primary Care Provider] - As needed Forms: Work/School Release Time of Disposition: 10:13 Medical Decision Making - Ryan Inquiry Pt receiving controlled substance: No Ryan was queried for this patient: No Vital Signs: 01/20/21 09:15 01/20/21 10:18 Temperature 98.8 F 98.8 F Temperature Source Oral Pulse Rate 132 H Pulse Rate [Left Brachial] 132 H Respiratory Rate 22 22 Blood Pressure 149/82 H 02 Sat by Pulse Oximetry 97 Oxygen Delivery Method Room Air - Lab Data Lab Results 01/20/21 09:35: Strep Scn Rapid Clinic Negative Orders (Tests/Meds): ORDERS Category Date Time Status Covid-19 Nasal PCR ([facility]) Routine Lab 01/20/21 09:40 Received Strep Screen Confirmation Stat Micro 01/20/21 09:35 Received - Radiology Data #1 Image(s): Chest Image Reviewed: Yes I reviewed the patient's radiology image, Yes I have reviewed radiologist's interpretation Preliminary Findings: Normal/NAD [facility] [place] HPI - General Stated complaint: congestion, cough Time Seen by Provider: 01/20/21 09:36 Mode of Arrival: Ambulatory Source of Information: Patient Limitations: No Limitations Description of Symptoms (Recalled from Triage Doc. by RN): PATIENT C/O SINUS CONGESTION, PRODUCTIVE COUGH WITH GREEN PHLEGM X 1 WEEK HEENT Symptoms (Recalled from RN notes): Yes Resp Symptoms (Recalled from RN notes): Yes Skin Symptoms (Recalled from RN notes): No MS Symptoms (Recalled from RN notes): No Functional Status (Recalled from RN notes): WNL - History of Present Illness Provider Complaint: Patient states that she has been having sinus pain and pressure for over a week State that she has also had a nagging cough State that over the weekend she started coughing up some greenish yellow phlem State that she is prone for pneumonia and was worried she was starting to get pneumonia States that she has been taking over the counter cold medication and it didnt help and family member had left over zpack and she started it yesterday - Related Data Home Medications Medication Instructions Recorded Confirmed Insulin Lispro [HumaLOG 100 0 units SQ DIRECTED 01/14/19 01/20/21 units/mL 3mL vial (SSI)] Insulin Pump Cartridge [Omnipod] 1 each SQ ONCE 01/20/21 01/20/21 Nebivolol HCl [Bystolic] 2.5 mg PO DAILY 01/20/21 01/20/21 lisinopriL [Zestril 2.5mg Tab] 2.5 mg PO DAILY 01/20/21 01/20/21 norethindrone-e.estradioL-iron 1 tab PO DAILY 01/20/21 01/20/21 [Junel Fe 1 mg-20 Mcg Tablet] Previous Rx's Medication Instructions Recorded Amoxicillin/Potassium Clav 1 tab PO Q12H 7 Days #14 tab 01/20/21 [Augmentin 875-125 Tablet] Fluticasone Propionate [Flonase 1 spr NS DAILY #1 bottle 01/20/21 50mcg nasal spray 16gm] guaiFENesin [Mucinex 600mg tablet] 1 - 2 tab PO Q12H #20 tab.er.12h 01/20/21 Allergies Allergy/AdvReac Type Severity Reaction Status Date / Time No Known Allergies Allergy Verified 01/20/21 09:40 - Worker's Comp Is this a Worker's Comp case?: No [facility] History - Hepatitis A Screen Drug use history?: No High risk sexual behaviors?: No History of sexually transmitted infection?: No Currently employed?: No Childcare worker?: No Do you hutchinson
[2021-01-20 10:18] VITALS: BP 149/82; PULSE 132; RESP 22; TEMP 37.1; O2SAT 97
[2021-01-20 10:25] LABS: UTC Strep Screen (Rapid) Negative (Negative)
== END 2021-01-20 10:24 | disposition home or self-care (01) ==
PROVIDERS: Emergency Provider Nurse Practitioner; PCP Family Medicine
DX: Z20.822 Contact with and (suspected) exposure to COVID-19 (principal); J32.9 Chronic sinusitis, unspecified; E10.9 Type 1 diabetes mellitus without complications; Z79.4 Long term (current) use of insulin; I10 Essential (primary) hypertension; Z79.899 Other long term (current) drug therapy
CPT/HCPCS: 71046; 87880; 99202; G0463; U0003

== ENCOUNTER → 2021-06-11 09:38 | Outpatient (CLI) | payer OTHER, SELFPAY ==
--- NOTE | 2021-06-11 09:45 | XR_ITS ---
PROCEDURE: XR CHEST PORTABLE CLINICAL HISTORY: CHEST CONGESTION,COVID OUTPATIENT COMPARISON: CT CTAC CTA-CHEST from 12/04/2016 CR CXR CHEST(2 VIEWS-NOT PORTABLE) from 02/10/2017 CR XR CHEST 2V from 01/20/2021 FINDINGS: The cardiomediastinal silhouette and pulmonary vascularity are within normal limits. The lungs are clear without infiltrates, suspicious nodules, or pleural effusions. No acute bony abnormalities. IMPRESSION: No acute findings. Dictated by: Boaz Tim MD 06/11/2021 10:23 Boaz Tim MD in [place] 06/11/2021 10:23
== END ==
PROVIDERS: PCP Family Medicine; Visit Provider Family Medicine
DX: R09.89 Other specified symptoms and signs involving the circulatory and respiratory systems (principal)
CPT/HCPCS: 71045

== ENCOUNTER → 2021-09-22 14:36 | Outpatient (CLI) | payer OTHER, SELFPAY ==
[2021-09-22 15:26] LABS: Adenovirus,PCR Not Detected (NotDetected); Bordetella Pertussis Not Detected (NotDetected); Chlamydophila Pneumoniae, PCR Not Detected (NotDetected); Coronavirus 19, PCR Not Detected (NotDetected); Coronavirus 229E Not Detected (NotDetected); Coronavirus NL63 Not Detected (NotDetected); Coronavirus OC43 Not Detected (NotDetected); Coronovirus HKU1,PCR Not Detected (NotDetected); Influenza A, PCR Not Detected (NotDetected); Influenza AH1, 2009 Not Detected (NotDetected); Influenza AH1, PCR Not Detected (NotDetected); Influenza AH3,PCR Not Detected (NotDetected); Influenza B, PCR Not Detected (NotDetected); Mycoplasma Pneumoniae, PCR Not Detected (NotDetected); Parainfluenza 1, PCR Not Detected (NotDetected); Parainfluenza 2, PCR Not Detected (NotDetected); Parainfluenza 3, PCR Not Detected (NotDetected); Parainfluenza 4, PCR Not Detected (NotDetected); Respiratory Syncytial Virus Not Detected (NotDetected); Rhinovirus/Enterovirus Not Detected (NotDetected)
[2021-09-22 21:23] LABS: Human Metapneumovirus Detected (NotDetected)
== END ==
PROVIDERS: PCP Family Medicine; Visit Provider Family Medicine
DX: Z20.822 Contact with and (suspected) exposure to COVID-19 (principal); B97.81 Human metapneumovirus as the cause of diseases classified elsewhere
CPT/HCPCS: 87581; 87632; 87798; C9803; U0003; U0005

== ENCOUNTER 2021-12-10 09:13 | Emergency (ER) | payer OTHER, SELFPAY ==
[2021-12-10 10:44] VITALS: BP 135/81; PULSE 122; RESP 16; TEMP 36.8; O2SAT 97; BMI 36.0
--- NOTE | 2021-12-10 10:57 | HMH.EDUTC ---
[facility] [place] Disposition Clinical Impression: Viral syndrome, Gastroenteritis Disposition: Home, Self-Care Condition on Discharge: Good Instructions: Viral Gastroenteritis, DI for Viral Gastroenteritis -- Adult, Ondansetron Additional Instructions: Drink plenty of fluids. Take tylenol or ibuprofen for pain or fever. Take the medications as directed. Follow up with your regular doctor. GO TO THE ER FOR ANY WORSENING SYMPTOMS Quarantine until you know the results of your covid-19 test. Notify your school or workplace of your results and follow their instructions regarding return to work/school. Prescriptions: Ondansetron [Zofran 4mg ODT] 4 mg PO Q8HP PRN #20 tab PRN Reason: Nausea Transmission Status: Received by [facility]/pharmacy #[id number] Referrals: Zak Wright MD [Primary Care Provider] - Forms: Work/School Release Time of Disposition: 11:24 Medical Decision Making - Medical Records Medical records reviewed: No: I reviewed the patient's medical records. - Ryan Inquiry Pt receiving controlled substance: No Vital Signs: 12/10/21 10:44 12/10/21 11:46 Temperature 98.2 F 98.2 F Temperature Source Oral Pulse Rate 122 H Pulse Rate [Left] 122 H Respiratory Rate 16 16 Blood Pressure 135/81 Blood Pressure [Right Arm] 135/81 Blood Pressure Mean [Right Arm] 99 02 Sat by Pulse Oximetry 97 - Lab Data Lab Results 12/10/21 10:39: Influenza Type A Ag Negative, Influenza Type B Ag Negative 12/10/21 10:39: Strep Scn Rapid Clinic Negative 12/10/21 11:28: Urine Color Yellow, Urine Appearance Clear, Urine pH 5.0, Ur Specific Oran > 1.030 H, Urine Protein 1+, Urine Glucose (UA) 3+, Urine Ketones Trace, Urine Blood Negative, Urine Nitrate Negative, Urine Bilirubin Negative, Urine Urobilinogen 0.2, Ur Leukocyte Esterase Negative Orders (Tests/Meds): ED MEDICATIONS Discontinued Medications Generic Name Dose Route Start Last Admin Trade Name Freq PRN Reason Stop Dose Admin Ondansetron HCl 4 mg 12/10/21 10:49 12/10/21 10:50 Ondansetron 4mg Odt SL 12/10/21 10:50 4 mg ONCE ONE Administration ORDERS Category Date Time Status Strep Screen Confirmation Stat Micro 12/10/21 10:[address] [facility] [place] HPI - General Stated complaint: vomiting, diarrhea Time Seen by Provider: 12/10/21 10:57 Mode of Arrival: Ambulatory Source of Information: Patient Limitations: No Limitations Description of Symptoms (Recalled from Triage Doc. by RN): pt c/o n/v/d and middle stomach pain that feels like burning. pt states her emesis is yellow and green. HEENT Symptoms (Recalled from RN notes): No Resp Symptoms (Recalled from RN notes): No Skin Symptoms (Recalled from RN notes): No MS Symptoms (Recalled from RN notes): No Functional Status (Recalled from RN notes): wnl - History of Present Illness Provider Complaint: She states that since yesterday shehas had vomiting and diarrhea. She denies any shortness of breath or cough. She is a type 1 diabetic. - Related Data Home Medications Medication Instructions Recorded Confirmed Insulin Lispro [HumaLOG 100 0 units SQ DIRECTED 01/14/19 01/20/21 units/mL 3mL vial (SSI)] Insulin Pump Cart,Cont Inf,Rf 1 each SQ ONCE 01/20/21 01/20/21 [Omnipod] Nebivolol HCl [Bystolic] 2.5 mg PO DAILY 01/20/21 01/20/21 lisinopriL [Zestril 2.5mg Tab] 2.5 mg PO DAILY 01/20/21 01/20/21 norethindrone-e.estradioL-iron 1 tab PO DAILY 01/20/21 01/20/21 [Junel Fe 1 mg-20 Mcg Tablet] Previous Rx's Medication Instructions Recorded Amoxicillin/Potassium Clav 1 tab PO Q12H 7 Days #14 tab 01/20/21 [Augmentin 875-125 Tablet] Fluticasone Propionate [Flonase 1 spr NS DAILY #1 bottle 01/20/21 50mcg nasal spray 16gm] guaiFENesin [Mucinex 600mg tablet] 1 - 2 tab PO Q12H #20 tab.er.12h 01/20/21 Ondansetron [Zofran 4mg ODT] 4 mg PO Q8HP PRN #20 tab 12/10/21 Allergies Allergy/AdvReac Type Severity Reaction Status Date / Time No
[2021-12-10 11:06] LABS: UTC Influenza A Antigen Negative (Negative); UTC Strep Screen (Rapid) Negative (Negative)
[2021-12-10 11:07] LABS: UTC Influenza B Antigen Negative (Negative)
[2021-12-10 11:32] LABS: Apearance,Urine Clear (Clear); Color,Urine Yellow (Yellow)
[2021-12-10 11:33] LABS: Glucose,Urine (UA) 3+ (Negative); Ketones,Urine TRACE (Negative); Protein,Urine 1+ (Negative); Specific Gravity, Urine > 1.030 (1.005-1.030)
[2021-12-10 11:34] LABS: Bilirubin,Urine Negative (Negative); Blood, Urine Negative (Negative); UTC Leukocyte Esterase,Urine Negative (Negative); UTC Nitrate,Urine Negative (Negative); Urobilinogen,Urine 0.2 EU/dl (0.2)
[2021-12-10 11:46] VITALS: BP 135/81; PULSE 122; RESP 16; TEMP 36.8
== END 2021-12-10 11:46 | disposition home or self-care (01) ==
PROVIDERS: Emergency Provider Nurse Practitioner Family; PCP Family Medicine
DX: K52.9 Noninfective gastroenteritis and colitis, unspecified (principal)
CPT/HCPCS: 81003; 87804; 87880; 99212; G0463

== ENCOUNTER 2022-03-09 14:34 | Emergency (ER) | payer OTHER, SELFPAY ==
--- NOTE | 2022-03-09 15:46 | HMH.EDUTC ---
[facility] [place] Disposition Clinical Impression: COVID-19, Bronchitis Disposition: Home, Self-Care Condition on Discharge: Good Instructions: DI for COVID-19 (Suspected or Confirmed ), Preventing the Spread of Coronavirus Discharge Instructions Additional Instructions: Drink plenty of fluids. Take tylenol or ibuprofen for pain or fever. Take the medications as directed. Follow up with your regular doctor. GO TO THE ER FOR ANY WORSENING SYMPTOMS The cough medication (promethazine dm) will make you drowsy, so don't drive or operate heavy machinery after taking it. Prescriptions: Promethazine/Dextromethorphan [Promethazine-Dm Syrup] 5 ml PO Q6HP PRN #240 ml PRN Reason: Cough Transmission [id number] Ondansetron [Zofran 4mg ODT] 4 mg PO Q8HP PRN #20 tab PRN Reason: Nausea Transmission Status: [id number] methylPREDNISolone [Medrol] 4 mg PO DIRECTED 6 Days #21 packet Transmission Status: Received by [id number] Nirmatrelvir/Ritonavir [Paxlovid 150-100 mg Pack (Eua)] 1 each PO DIRECTED 5 Days #1 packet Transmission Status[facility] Referrals: Zak Wright MD [Primary Care Provider] - Time of Disposition: 16:09 Medical Decision Making - Medical Records Medical records reviewed: No: I reviewed the patient's medical records. - Ryan Inquiry Pt receiving controlled substance: No Vital Signs: 03/09/22 15:47 03/09/22 16:11 Temperature 97.9 F 97.9 F Temperature Source Oral Pulse Rate 115 H Pulse Rate [Left Radial] 115 H Respiratory Rate 20 20 Blood Pressure 145/99 H Blood Pressure [Right Arm] 145/99 H Blood Pressure Mean [Right Arm] 114 02 Sat by Pulse Oximetry 96 - Lab Data Lab results reviewed: Yes: I reviewed the patient's lab results. [facility] [place] HPI - General Stated complaint: covid test Time Seen by Provider: 03/09/22 15:46 - History of Present Illness Provider Complaint: She had a positive home covid test today after having low grade fever, chills and feeling bad for the past 3 days. - Related Data Home Medications Medication Instructions Recorded Confirmed Insulin Lispro [HumaLOG 100 0 units SQ DIRECTED 01/14/19 01/20/21 units/mL 3mL vial (SSI)] Insulin Pump Cart,Cont Inf,Rf 1 each SQ ONCE 01/20/21 01/20/21 [Omnipod] Nebivolol HCl [Bystolic] 2.5 mg PO DAILY 01/20/21 01/20/21 lisinopriL [Zestril 2.5mg Tab] 2.5 mg PO DAILY 01/20/21 01/20/21 norethindrone-e.estradioL-iron 1 tab PO DAILY 01/20/21 01/20/21 [Junel Fe 1 mg-20 Mcg Tablet] Previous Rx's Medication Instructions Recorded Amoxicillin/Potassium Clav 1 tab PO Q12H 7 Days #14 tab 01/20/21 [Augmentin 875-125 Tablet] Fluticasone Propionate [Flonase 1 spr NS DAILY #1 bottle 01/20/21 50mcg nasal spray 16gm] guaiFENesin [Mucinex 600mg tablet] 1 - 2 tab PO Q12H #20 tab.er.12h 01/20/21 Ondansetron [Zofran 4mg ODT] 4 mg PO Q8HP PRN #20 tab 12/10/21 Nirmatrelvir/Ritonavir [Paxlovid 1 each PO DIRECTED 5 Days #1 03/09/22 150-100 mg Pack (Eua)] packet Ondansetron [Zofran 4mg ODT] 4 mg PO Q8HP PRN #20 tab 03/09/22 Promethazine/Dextromethorphan 5 ml PO Q6HP PRN #240 ml 03/09/22 [Promethazine-Dm Syrup] methylPREDNISolone [Medrol] 4 mg PO DIRECTED 6 Days #21 03/09/22 packet Allergies Allergy/AdvReac Type Severity Reaction Status Date / Time No Known Allergies Allergy Verified 03/09/22 15:49 [facility] History - Hepatitis A Screen Attestation statement:: This patient has been screened for Hepatitis A risk factors. I have reviewed the patient's past medical history: Yes Medical History: Reports:: Diabetes Mellitus Type 1 Denies:: Cancer, Diabetes Mellitus Type 2, MRSA Other Surgeries: Yes: Cholecystectomy, Amputation: No Fractures: No - Social History Smoking Status: Never smoker Alcohol Intake: never Alcohol Intake Frequency:: holidays/special occasions
[2022-03-09 15:47] VITALS: BP 145/99; PULSE 115; RESP 20; TEMP 36.6; O2SAT 96; BMI 36.0
[2022-03-09 16:11] VITALS: BP 145/99; PULSE 115; RESP 20; TEMP 36.6
== END 2022-03-09 16:13 | disposition home or self-care (01) ==
PROVIDERS: Emergency Provider Nurse Practitioner Family; PCP Family Medicine
DX: U07.1 COVID-19 (principal); E10.8 Type 1 diabetes mellitus with unspecified complications; Z79.4 Long term (current) use of insulin; Z79.51 Long term (current) use of inhaled steroids; Z79.52 Long term (current) use of systemic steroids; Z79.890 Hormone replacement therapy; Z79.899 Other long term (current) drug therapy; Z82.49 Family history of ischemic heart disease and other diseases of the circulatory system; Z80.9 Family history of malignant neoplasm, unspecified; Z83.3 Family history of diabetes mellitus; Z83.438 Family history of other disorder of lipoprotein metabolism and other lipidemia
CPT/HCPCS: 99213; C9803; G0463; U0003; U0005

== ENCOUNTER 2022-08-18 05:28 | Emergency (ER) | payer OTHER, SELFPAY ==
[2022-08-18 05:29] VITALS: BP 143/99; PULSE 103; RESP 16; TEMP 36.7; O2SAT 99; BMI 36.8
--- NOTE | 2022-08-18 05:36 | CT_ITS ---
PROCEDURE INFORMATION: Exam: CT Abdomen And Pelvis With Contrast Exam date and time: 08/18/2022 7:16 AM Age: 27 years old Clinical indication: Abdominal pain; Localized; Upper; Prior surgery; Surgery type: Cholecystectomy, c section; Additional info: Abd pain TECHNIQUE: Imaging protocol: Computed tomography of the abdomen and pelvis with contrast. Radiation optimization: All CT scans at this facility use at least one of these dose optimization techniques: automated exposure control; mA and/or kV adjustment per patient size (includes targeted exams where dose is matched to clinical indication); or iterative reconstruction. Contrast material: ISOVUE; Contrast volume: 75 ml; Contrast route: IV; COMPARISON: ABDPELW CT abdomen pelvis w con 01/14/2019 4:44 PM FINDINGS: Lungs: 6 mm nodular opacity in the left lower lobe is unchanged since CT 01/14/2019, suggestive of benignity. Liver: No focal liver lesions. Gallbladder and bile ducts: Cholecystectomy. Pancreas: Normal. No ductal dilation. Spleen: No mass. Adrenal glands: No mass. Kidneys and ureters: No mass or hydronephrosis. Stomach and bowel: No obstruction. Appendix: No evidence of appendicitis. Intraperitoneal space: No free air. No significant fluid collection. Vasculature: No abdominal aortic aneurysm. Lymph nodes: Mildly prominent nonspecific central mesenteric lymph nodes. Urinary bladder: Unremarkable as visualized. Reproductive: IUD. Bones/joints: Mild scoliosis. Soft tissues: Tiny fat containing umbilical hernia. IMPRESSION: No evidence of an acute intra-abdominal process. Otherwise, as above. If the patient does not have known cancer, follow up should be based on clinical information because of the low risk of cancer in this age group. (Reference: Zach) References: Zach Figueroa et al. Guidelines for Management of Incidental Pulmonary Nodules Detected on CT Images: From the Fleischner Society 2017. Radiology. 2017;284(1):228-243.
[2022-08-18 06:00] LABS: Alanine Aminotransferase 38 U/L (12-78); Albumin Level 4.5 g/dl (3.5-5.0); Albumin/Globulin Ratio 1.5 (1.1-1.8); Alkaline Phosphatase 163 U/L (38-126); Amylase 56 U/L (30-110); Anion Gap 15.3 mEq/L (5-15); Aspartate Amino Transferase 37 U/L (14-36); Bilirubin,Total 0.4 mg/dl (0.2-1.3); Blood Urea Nitrogen 14 mg/dl (7-17); Calcium 9.4 mg/dl (8.4-10.2); Carbon Dioxide 31 mmol/L (22.0-30.0); Chloride 99 mmol/L (98-107); Creatinine Clearance Estimated 215 mL/min (50-200); Estimated Glomerular Filt Rate 119 ml/min (>60); GFR (African American) 144 ML/MIN (>60); Glucose 147 mg/dl (74-100); HCG Qualitative, Serum Negative (Negative); Lipase 44 U/L (23-300); Potassium 4.3 mmoL/L (3.5-5.1); Sodium 141 mmol/L (136-145); Total Protein,Serum 7.5 g/dl (6.3-8.2)
[2022-08-18 06:02] LABS: Basophils # 0.1 K/mm3 (0-0.2); Basophils % 1.9 % (0.1-2.0); Eosinophils # 0.1 K/mm3 (0.0-0.4); Eosinophils % 1.9 % (0.1-12.0); Hematocrit 43.8 % (37.0-47.0); Hemoglobin 14.5 g/dL (12.2-16.2); Lymphocytes # 2.4 K/mm3 (0.7-4.5); Lymphocytes % 32.8 % (10-50); Mean Corpuscular HGB Conc 33.1 g/dL (31.8-35.4); Mean Corpuscular Hemoglobin 30.5 pg (27.0-31.2); Mean Corpuscular Volume 91.9 fl (81-99); Mean Platelet Volume 9.4 fl (7.4-10.4); Monocytes # 0.5 K/mm3 (0.1-1.0); Monocytes % 6.7 % (1.7-9.3); Neutrophils # 4.2 K/mm3 (1.8-7.8); Neutrophils % 56.8 % (37.0-80.0); Platelet Count 329 K/mm3 (142-424); Red Blood Count 4.76 M/mm3 (4.20-5.40); Red Cell Distribution Width 13.2 % (11.5-17.5); White Blood Count 7.3 K/mm3 (4.8-10.8)
--- NOTE | 2022-08-18 06:19 | HMH.EDABDPAI ---
Discharge Plan Disposition Patient Disposition: Home, Self-Care Prescriptions Prescriptions: New hyoscyamine sulfate [Levsin] 0.125 mg tablet 0.125 mg PO QID Qty: 10 0RF No Action insulin lispro [Humalog U-100 Insulin] 100/ML solution 0 units SQ DIRECTED Rx Instructions: pt states this is sliding scale per her glucose reading norethindrone-e.estradiol-iron 1 EACH tablet 1 tab PO DAILY Label Comments: TAKE 1 TABLET BY MOUTH EVERY DAY DIRECTED lisinopril 2.5 MG tablet 2.5 mg PO DAILY (DME) insulin pump cartridge 1 EACH cartridge 1 each SQ ONCE nebivolol 2.5 MG tablet 2.5 mg PO DAILY fluticasone propionate 120 SPR/BOT bottle 1 spr NS DAILY Qty: 1 0RF Rx Instructions: each nostril daily amoxicillin-pot clavulanate 1 EACH tablet 1 tab PO Q12H 7 Days Qty: 14 0RF guaifenesin 600 MG tablet extended release 12hr 1 - 2 tab PO Q12H Qty: 20 0RF methylprednisolone 4 MG tablets,dose pack 4 mg PO DIRECTED 6 Days Qty: 21 0RF promethazine-DM 120 ML syrup 5 ml PO Q6HP PRN (Reason: Cough) Qty: 240 0RF ondansetron 4 MG tablet,disintegrating 4 mg PO Q8HP PRN (Reason: Nausea) Qty: 20 0RF nirmatrelvir-ritonavir 1 EACH tablet 1 each PO DIRECTED 5 Days Qty: 1 0RF Rx Instructions: Take as directed on the pack for 5 days. ondansetron 4 MG tablet,disintegrating 4 mg PO Q8HP PRN (Reason: Nausea) Qty: 20 0RF Referrals Follow up/Referrals: Zak Wright MD [Primary Care Provider] - See instructions Clinical Impressions Clinical Impression: Abdominal pain Instructions Patient Instructions: DI for Acute Abdominal Pain Discharge ED Provider: Efraín Velasquez Abdominal Pain HPI General Chief Complaint: Abdominal Pain Stated Complaint: Abdominal Pain some nausea Time Seen by Provider: 08/18/22 06:19 Mode of Arrival: Ambulatory Source of Information: Patient and Medical Record Limitations: No Limitations Description of Symptoms (Recalled from ER Triage Doc. by RN): pt c/o upper abd pain that started at 8 lsdt night. pt denies n/v/d History of Present Illness HPI narrative: pt with abd pain - epigastric MD complaint: abdominal pain Onset (ago): hour(s) Consistency: intermittent Location: epigastric Severity: moderate Associated symptoms: denies other symptoms Related Data Home Medications Medication Instructions Recorded Confirmed insulin lispro 100 unit/mL 0 units SQ DIRECTED Diabetes 01/14/19 01/20/21 subcutaneous solution (Humalog U-100 Insulin) insulin pump cartridge 01/20/21 01/20/21 lisinopril 2.5 mg tablet 2.5 mg PO DAILY KIDNEYS 01/20/21 01/20/21 nebivolol 2.5 mg tablet 2.5 mg PO DAILY HEART RATE 01/20/21 01/20/21 norethindrone 1 mg-ethinyl 1 tab PO DAILY control 01/20/21 01/20/21 estradiol 20 mcg (21)-iron 75 mg (7) tablet Previous Rx's Medication Instructions Recorded amoxicillin 875 mg-potassium 1 tab PO Q12H 7 days #14 tabs 01/20/21 clavulanate 125 mg tablet fluticasone propionate 50 1 spr NS DAILY ##1 01/20/21 mcg/actuation nasal spray,suspension guaifenesin 600 mg tablet, 1 - 2 tab PO Q12H Congestion/chest 01/20/21 extended release 12 hr congesti ##20 ondansetron 4 mg disintegrating 4 mg PO Q8HP PRN Nausea #20 tabs 12/10/21 tablet methylprednisolone 4 mg tablets in 4 mg PO DIRECTED 6 days #21 03/09/22 a dose pack packets nirmatrelvir 150 mg-ritonavir 100 1 each PO DIRECTED 5 days #1 03/09/22 mg tablets in a dose pack (EUA) packet ondansetron 4 mg disintegrating 4 mg PO Q8HP PRN Nausea #20 tabs 03/09/22 tablet promethazine-DM 6.25 mg-15 mg/5 mL 5 ml PO Q6HP PRN Cough #240 mL 03/09/22 oral syrup hyoscyamine sulfate 0.125 mg 0.125 mg PO QID #10 tabs 08/18/22 tablet (Levsin) Allergies Allergy/AdvReac Type Severity Reaction Status Date / Time No Known Allergies Allergy Verified 03/09/22 15:49 PFSH PFSH Social History Smoking
[2022-08-18 06:30] VITALS: BP 136/84; PULSE 94; O2SAT 96
--- NOTE | 2022-08-18 07:38 | PC.NURSE ---
PT TO BR TO PROVIDE URINE SPECIMEN
--- NOTE | 2022-08-18 07:42 | PC.NURSE ---
DR. HERNANDEZ AT BEDSIDE FOR EVALUATION
[2022-08-18 07:48] LABS: Microscopic, Urine URINE MICROSCOPIC (MICROSCOPIC)
[2022-08-18 07:52] LABS: Appearance,Urine CLEAR (Clear); Bilirubin,Urine Negative (Negative); Blood, Urine Negative (Negative); Color,Urine YELLOW (Yellow); Glucose,Urine (UA) Negative (Negative); Ketones,Urine Negative (Negative); Leukocyte Esterase,Urine Negative (Negative); Nitrate,Urine Negative (Negative); PH,Urine 7.5 (5.0-8.5); Protein,Urine Negative (Negative); Urobilinogen,Urine 0.2 EU/dl (0.2)
[2022-08-18 08:02] VITALS: BP 132/80; PULSE 87; RESP 16; TEMP 37; O2SAT 98
[2022-08-18 08:05] LABS: WBC,Urine Occasional #/hpf (0-3)
== END 2022-08-18 08:05 | disposition home or self-care (01) ==
PROVIDERS: Emergency Provider Emergency Medicine; PCP Family Medicine
DX: R10.13 Epigastric pain (principal); R11.0 Nausea; R05.9 Cough, unspecified; Z79.52 Long term (current) use of systemic steroids; Z79.4 Long term (current) use of insulin; Z79.51 Long term (current) use of inhaled steroids; Z79.3 Long term (current) use of hormonal contraceptives; Z79.899 Other long term (current) drug therapy
CPT/HCPCS: 74177; 80053; 81001; 82150; 83690; 84703; 85025; 96361; 96374; 96375; 99285; Q9967